=== PATIENT | male | born 2000 | race Caucasian/White ===

== ENCOUNTER 2024-12-14 08:23 | Emergency (ER) | payer BC, SELFPAY ==
[2024-12-14 08:32] VITALS: BP 138/78; PULSE 67; TEMP 36.8; O2SAT 98; BMI 33.5
--- NOTE | 2024-12-14 09:04 | ED.GENADUL1 ---
HPI HPI - General Adult General Chief complaint: Upper Respiratory Infection Stated complaint: SORE THROAT Time Seen by Provider: 12/14/24 08:31 Source: patient Mode of arrival: walk-in Limitations: no limitations History of Present Illness HPI narrative: 24-year-old male presents for swelling of his uvula. It began last night. No fever or cough or difficulty breathing. It has been continuous. He has never had anything like this previously. Related Data Previous Rx's ?Medication ?Instructions ?Recorded prednisone 20 mg tablet 40 mg (2 x 20 mg) PO DAILY 4 days 12/14/24 #8 tabs Allergies Allergy/AdvReac Type Severity Reaction Status Date / Time No Known Drug Allergies Allergy Verified 12/14/24 08:32 Review of Systems ROS Narrative A ten point review of systems is negative except as noted above. PFSH PFSH Social History Little interest or pleasure in doing things: not at all Feeling down, depressed, or hopeless: not at all Exam Narrative Exam Narrative: Nurses note and vital signs reviewed and patient is not hypoxic. General: The patient appears well and in no apparent distress. Patient is resting comfortably on cart. Skin: Warm, dry, no pallor noted. There is no rash noted. Head: Normocephalic, atraumatic Eye: Normal conjunctiva, no drainage Ears, Nose, Mouth, and Throat: oral mucosa is moist. Nares patent. There is no swelling to the floor of his mouth. He is handling his oral secretions well. Uvula is mildly enlarged and midline. No retropharyngeal swelling. Cardiovascular: Regular Rate and Rhythm Respiratory: Patient is in no distress, no accessory muscle use Back: non-tender GI: Normal bowel sounds, no tenderness to palpation, no masses appreciated. No rebound, guarding, or rigidity noted. Musculoskeletal: The patient has no evidence of calf tenderness, no pitting edema, symmetrical pulses noted bilaterally Neurological: A&O, normal speech Psychiatric: Cooperative Constitutional Vital Signs, click to edit/add: Last Vital Signs Temp 98.2 F 12/14/24 08:32 Pulse 67 12/14/24 08:32 Resp 18 12/14/24 08:32 BP 138/78 12/14/24 08:32 Pulse Ox 98 12/14/24 08:32 O2 Del Method Room Air 12/14/24 08:32 Course Vital Signs Vital signs: Vital Signs Temperature 98.2 F 12/14/24 08:32 Pulse Rate 67 12/14/24 08:32 Respiratory Rate 18 12/14/24 08:32 Blood Pressure 138/78 12/14/24 08:32 Pulse Oximetry 98 12/14/24 08:32 Oxygen Delivery Method Room Air 12/14/24 08:32 Temperature 98.2 F 12/14/24 08:32 Pulse Rate 67 12/14/24 08:32 Respiratory Rate 18 12/14/24 08:32 Blood Pressure 138/78 12/14/24 08:32 Pulse Oximetry 98 12/14/24 08:32 Oxygen Delivery Method Room Air 12/14/24 08:32 Medical Decision Making MDM Narrative Medical decision making narrative: My clinical impression is that he has allergic uvulitis. I do not suspect an infection. He was given IM Decadron and prescribed prednisone. Treatment diagnosis and follow-up were discussed with the patient. Differential Diagnosis Differential Diagnosis: Uvulitis, abscess, strep throat Discharge Plan Discharge Chief Complaint: Upper Respiratory Infection Clinical Impression: Uvulitis Patient Disposition: Home, Self-Care Time of Disposition Decision: 08:53 Condition: Good Mode of Transportation: Private Vehicle Prescriptions / Home Meds: New prednisone 20 mg tablet 40 mg PO DAILY 4 Days Qty: 8 0RF Print Language: [place] Instructions: Uvulitis (ED) Referrals: Physician,Non-Staff, MD [Primary Care Provider] - 1 week
[2024-12-14] MEDS: DEXAMETHASONE SOD PHOS 10 MG/ML VIAL IM (09:07)
== END 2024-12-14 09:14 | disposition home or self-care (01) ==
PROVIDERS: Emergency Provider Emergency Medicine
DX: K12.2 Cellulitis and abscess of mouth (principal); K13.79 Other lesions of oral mucosa
CPT/HCPCS: 96372; 99284; J1100